=== PATIENT | male | born 1995 | race Caucasian/White ===

== ENCOUNTER 2020-01-04 12:51 | Emergency (ER) | payer OTHER ==
[~2020-01-04] VITALS: Ht 188 cm; Wt 68.0 kg
[~2020-01-04 12:51] MED LIST: FAMO10 PO; HYDACE5 PO; PRED10 PO
== END 2020-01-04 13:50 | disposition home or self-care (01) ==
LOC: ER 12:51
DX: S63.631A Sprain of interphalangeal joint of left index finger, initial encounter (principal); S90.32XA Contusion of left foot, initial encounter; V29.9XXA Motorcycle rider (driver) (passenger) injured in unspecified traffic accident, initial encounter
CPT/HCPCS: 73140; 73630; 99283-25

== ENCOUNTER 2022-06-28 08:47 | Emergency (ER) | payer OTHER ==
[~2022-06-28] VITALS: Ht 188 cm; Wt 90.7 kg
[2022-06-28] MEDS ORDERED: ONDA4ODT MM (13:14)
== END 2022-06-28 12:35 | disposition home or self-care (01) ==
LOC: ER 08:47
DX: S01.01XA Laceration without foreign body of scalp, initial encounter (principal); M25.511 Pain in right shoulder; Z23 Encounter for immunization; V40.5XXA Car driver injured in collision with pedestrian or animal in traffic accident, initial encounter
CPT/HCPCS: 12004; 70450; 73030; 90471; 90714; 99284-25; A9270